=== PATIENT | male | born 1995 | race Caucasian/White ===

== ENCOUNTER 2018-07-03 14:38 | Emergency (ER) | payer BC, MEDICAID ==
[~2018-07-03] VITALS: Ht 165.1 cm; Wt 65.8 kg
[2018-07-03 15:35] VITALS: BP 167/86
[2018-07-03] MEDS ORDERED: IBUPROFEN 600 MG TABLET PO ONE ×2 (15:57→16:00)
--- NOTE | 2018-07-03 16:55 | NUR ---
CALLED [facility] RE: ASHA BANSAL.
== END 2018-07-03 17:32 | disposition home or self-care (01) ==
LOC: ER 14:47
DX: S60.551A Superficial foreign body of right hand, initial encounter (principal); W22.8XXA Striking against or struck by other objects, initial encounter; Y93.89 Activity, other specified; Y92.89 Other specified places as the place of occurrence of the external cause; Y99.8 Other external cause status
CPT/HCPCS: 29125; 73130; 99283; A4606

== ENCOUNTER 2018-07-25 09:05 | Emergency (ER) | payer BC, OTHER ==
[~2018-07-25] VITALS: Ht 167.6 cm; Wt 68.0 kg
[2018-07-25] MEDS ORDERED: BENZOIN COMPOUND TINCT 60 ML BOTTLE ONE (09:34)
[2018-07-25] MEDS ORDERED: IBUPROFEN 600 MG TABLET PO ONE ×2 (09:38→10:00)
--- NOTE | 2018-07-25 09:40 | NUR ---
patient presented to the ER c/o of left hand laceration from dog bited. On room air, breathing evenly and unlabored. Kept comfortable. will continue to monitor accordingly.
[2018-07-25 10:31] VITALS: BP 138/72
--- NOTE | 2018-07-25 10:31 | NUR ---
Patient discharged to home in stable condition. Written and verbal after care instructions given. Patient verbalizes understanding of instruction.
== END 2018-07-25 10:32 | disposition home or self-care (01) ==
LOC: ER 09:05
DX: S61.211A Laceration without foreign body of left index finger without damage to nail, initial encounter (principal); W54.0XXA Bitten by dog, initial encounter; Y93.89 Activity, other specified; Y92.89 Other specified places as the place of occurrence of the external cause; Y99.8 Other external cause status
CPT/HCPCS: 73120; 99283; A4606; A6403

== ENCOUNTER 2019-02-09 10:14 | Emergency (ER) | payer BC ==
[~2019-02-09] VITALS: Ht 172.7 cm; Wt 74.8 kg
[2019-02-09 10:26] VITALS: BP 138/82
[2019-02-09] MEDS ORDERED: KETOROLAC TROMETHAMINE INJ 60 MG/2 ML VIAL IM ONE ×3 (10:34→11:00)
== END 2019-02-09 11:59 | disposition home or self-care (01) ==
LOC: ER 10:21
DX: S93.492A Sprain of other ligament of left ankle, initial encounter (principal); X50.1XXA Overexertion from prolonged static or awkward postures, initial encounter; Y93.89 Activity, other specified; Y92.89 Other specified places as the place of occurrence of the external cause; Y99.8 Other external cause status
CPT/HCPCS: 73610; 96372; 99283; J1885

== ENCOUNTER 2021-12-22 19:01 | Emergency (ER) | payer SELFPAY ==
[~2021-12-22] VITALS: Ht 167.6 cm; Wt 77.1 kg
--- NOTE | 2021-12-22 20:02 | NUR ---
TO ER BED 11. BIBS C/O N/V X 1 DAY ADMITS TO ETOH YESTERDAY HX DAILY ALCOHOL ABUSE. PT IS ALERT AND ORIENTED. AMBULATORY WITH STEADY GAIT. BREATHING IS EVEN AND NON LABORED. CONNECTED TO MONITOR. AWAITING MD ORDERS
[2021-12-22] MEDS ORDERED: PANT40TA2 PO (20:50)
[2021-12-22] MEDS ORDERED: ONDA4TAB5 PO (20:50)
[2021-12-22] MEDS ORDERED: LIDOCAINE VISCOUS 2% UD 15 ML UDC ONE (20:53)
[2021-12-22] MEDS ORDERED: MAG HYDROX/AL HYDROX/SIMETH 30 ML UDC ONE (20:53)
[2021-12-22] MEDS ORDERED: ONDANSETRON 4 MG TAB.RAPDIS ONE (20:54)
[2021-12-22] MEDS ORDERED: LIDOCAINE VISCOUS 2% UD 15 ML UDC MM ONE (21:00)
[2021-12-22] MEDS ORDERED: ONDANSETRON 4 MG TAB.RAPDIS SL ONE (21:00)
[2021-12-22] MEDS ORDERED: MAG HYDROX/AL HYDROX/SIMETH 30 ML UDC PO ONE (21:00)
--- NOTE | 2021-12-22 21:00 | NUR ---
Patient discharged to home in stable condition. RX Written and verbal after care instructions given. Patient verbalizes understanding of instruction. pt ambulatory with a steady gait
[2021-12-22 21:02] VITALS: BP 139/87
== END 2021-12-22 21:02 | disposition home or self-care (01) ==
LOC: ER 19:09
DX: R11.2 Nausea with vomiting, unspecified (principal); F10.10 Alcohol abuse, uncomplicated; Y90.9 Presence of alcohol in blood, level not specified
CPT/HCPCS: 99283; Q0162